=== PATIENT | female | born 1955 | race Caucasian/White ===

== ENCOUNTER 2018-05-24 03:17 | Emergency (ER) | payer MEDICARE, MEDICAID ==
[2018-05-24] MEDS ORDERED: Sodium Chloride 0.9% 10 ML Syringe FLUSH PRN (03:32)
[2018-05-24] MEDS ORDERED: Sodium Chloride 0.9% 1,000 ML IV ONE (03:34)
[2018-05-24] MEDS ORDERED: methylPREDNISolone Sodium Succinate 125 MG/2 ML SDV IVPUSH ONE (03:37)
[2018-05-24] MEDS ORDERED: Albuterol/Ipratropium 3.0-0.5 MG/3 ML Neb Soln NEB ONE ×2 (03:38→05:48)
--- NOTE | 2018-05-24 04:12 | EDM.PDOC ---
ED HPI GENERAL MEDICAL PROBLEM - General Chief Complaint: Respiratory Problem Stated Complaint: Respiratory distress, hypoxia Time Seen by Provider: 05/24/18 03:25 Source of Information: Reports: Patient, EMS Notes Reviewed, RN, RN Notes Reviewed History Limitations: Reports: No Limitations - History of Present Illness INITIAL COMMENTS - FREE TEXT/NARRATIVE: Patient is brought to the ED at [facility] via EMS for SOB and wheezing. Patient states she was seen earlier this week in clinic and was diagnosed with bronchitis. She was place on oral steroid and a ZPak. Patient states her SOB started yesterday morning and has progressively gotten worse. She denies any cough. No chest pain. She states it is really hard to catch her breath. She denies any N/V/D. No exposures. No focal neurological deficits. She complains of profuse sweating. She feels very chilled. Onset: Gradual frontal headache Pain Score (Numeric/FACES): 5 - Related Data Allergies Allergy/AdvReac Type Severity Reaction Status Date / Time Penicillins Allergy Stomach Verified 09/20/16 22:59 Upset Home Meds: Home Meds Simvastatin 10 mg PO BEDTIME 02/13/16 [History] Verapamil HCl [Verapamil Sr] 180 mg DAILY 02/13/16 [History] Acetaminophen [Tylenol Extra Strength] 500 - 1,000 mg PO Q4H PRN 09/19/16 [ History] Aspirin [Halfprin] 81 mg PO DAILY 09/19/16 [History] Cyanocobalamin (Vitamin B-12) [B-12] 1,000 mcg PO DAILY 09/19/16 [History] Furosemide [Lasix] 20 mg PO DAILY 09/19/16 [History] Levothyroxine 125 mcg PO ACBREAKFAST 09/19/16 [History] Cephalexin [IJD: Cephalexin] 500 mg PO QID capsule 09/22/16 [Rx] levETIRAcetam [Keppra] 500 mg PO BID #60 tablet 09/22/16 [Rx] Past Medical History Cardiovascular History: Reports: Hypertension Gastrointestinal History: Reports: GERD Other Musculoskeletal History: DJD Neurological History: Reports: Seizure Psychiatric History: Reports: Addiction, Anxiety, Depression Dermatologic History: Reports: Cellulitis - Past Surgical History Female Surgical History: Reports: Hysterectomy, Other (See Below) Musculoskeletal Surgical History: Reports: Other (See Below) Oncologic Surgical History: Reports: Biopsy of Breast Social & Family History - Family History Family Medical History: Noncontributory - Caffeine Use Caffeine Use: Reports: Soda, Tea ED ROS GENERAL - Review of Systems Review Of Systems: See Below Constitutional: Reports: Chills, Weakness, Fatigue. Denies: Fever HEENT: Reports: No Symptoms Respiratory: Reports: Shortness of Breath, Wheezing. Denies: Cough, Sputum Cardiovascular: Denies: Chest Pain, Palpitations GI/Abdominal: Denies: Abdominal Pain, Nausea, Vomiting Skin: Reports: Diaphoresis Neurological: Denies: Dizziness, Headache, Numbness, Paresthesia, Tingling Psychiatric: Reports: Anxiety ED EXAM, GENERAL - Physical Exam Exam: See Below Exam Limited By: No Limitations General Appearance: Alert, Moderate Distress Respiratory/Chest: No Respiratory Distress, Decreased Breath Sounds, Crackles, Wheezing Cardiovascular: Normal Peripheral Pulses, Tachycardia (regular rhythm) Peripheral Pulses: 2+: Radial (L), Radial (R) GI/Abdominal: Soft, Non-Tender, Abnormal Bowel Sounds (Hypoactive) Neurological: Alert, Oriented Skin Exam: Intact, Cool, Diaphoretic EKG INTERPRETATION EKG Date: 05/24/18 Time: 03:46 Rhythm: Other Rate (Beats/Min): 116 [place]: Normal P-Wave: Present QRS: Normal ST-T: Normal QT: Normal CA/PQ Interval: 0.13 Comparison: Change From Previous EKG EKG Interpretation Comments: 1. Sinus Tachycardia 2. Nonspecific t-wave abnormality Course - Vital Signs Last Recorded V/S: Last Vital Signs Temp 36.2 C 05/24/18 03:17 Pulse 130 H 05/24/18 03:17 Resp 21 H 05/24/18 04:33 BP 167/110 H 05/24/18 03:17 Pulse Ox 99 05/24/18 04:33 - Orders/Labs/Meds Orders: Active Orders 24 hr Category Date Time Status EKG 12 Lead [EKG Documentation Completion] [RC] STAT Care 05/24/18 03:32 Active RT Aerosol Therapy [RC] ASDIRECTED Care 05/24/18 03:38 Active Chest 1V Frontal [CR] Stat Exams 05/24/18 03:32 Taken Chest PE [Ang Chest] [CT] Stat Exams 05/24/18 04:36 Taken CULTURE BLOOD [BC] Stat Lab 05/24/18 04:15 Received CULTURE BLOOD [BC] Stat Lab 05/24/18 04:22 Received UA W/MICROSCOPIC [URIN] Stat Lab 05/24/18 03:35 Ordered Heparin Sodium/0.45% NaCl [Heparin 25,000 Units in 1/2 Med 05/24/18 06:00 Ordered NS 500 ML] 25,000 units in 500 ml IV TITRATE Levofloxacin/Dextrose 5%-Water [Levaquin in D5W 500 MG/ Med 05/24/18 05:46 Ordered 100 ML] 500 mg Premix Bag 1 bag IV ONETIME Sodium Chloride 0.9% [Saline Flush] Med 05/24/18 03:32 Active 10 ml FLUSH ASDIRECTED PRN Blood Culture x2 Reflex Set [OM.PC] Stat Oth 05/24/18 03:30 Ordered Peripheral IV Insertion Adult [OM.PC] Routine Oth 05/24/18 03:32 Ordered Medication Orders Levofloxacin/Dextrose 500 mg/ (Premix) 100 mls @ 100 mls/hr IV ONETIME ONE Stop: 05/24/18 06:45 Heparin Sodium/Sodium Chloride (Heparin 25,000 Units In 1/2 Ns 500 Ml) 25,000 units in 500 mls @ 2,068.38 mls/hr IV TITRATE CHAN; Protocol Sodium Chloride (Saline Flush) 10 ml FLUSH ASDIRECTED PRN PRN Reason: Keep Vein Open Labs: Laboratory Tests 05/24/18 05/24/18 05/24/18 Range/Units 03:30 03:30 03:30 WBC 24.4 H* (4.0-10.0) x10^3/uL RBC 5.32 (4.00-5.50) x10^6/uL Hgb 16.7 H D (12.0-16.0) g/dL Hct 49.8 H (33.0-47.0) % MCV 93.6 H D (78.0-93.0) fL MCH 31.4 (26.0-32.0) pg MCHC 33.5 (32.0-36.0) g/dL RDW Coeff of Rupert 15.5 H (10.0-15.0) % Plt Count 341 D (130-400) x10^3/uL Add Manual Diff Yes Neutrophils % (Manual) 80 (50-80) % Lymphocytes % (Manual) 8 L (25-50) % Monocytes % (Manual) 2 (2-11) % Eosinophils % (Manual) 8 H (0-4) % Basophils % (Manual) 2 H (0-1) % Platelet Estimate Adequate D-Dimer, Quantitative (<=0.58) mg/LFEU POC ABG pH (7.35-7.45) POC ABG pCO2 (35-45) mmHG POC ABG pO2 (80-105) mmHG POC ABG HCO3 (22-26) mmol/L POC ABG Total CO2 (23-27) mmol/L POC ABG O2 Sat (95-98) % POC ABG Base Excess (-2-3) mmol/L POC FiO2 Sodium 138 (136-145) mmol/L Potassium 3.1 L (3.5-5.1) mmol/L Chloride 97 L (98-107) mmol/L Carbon Dioxide 30 (21-32) mmol/L Anion Gap 14.1 (10-20) mmol/L BUN 8 (7-18) mg/dL Creatinine 0.7 (0.55-1.02) mg/dL Est Cr Clr Drug Dosing 70.70 mL/min Estimated GFR (MDRD) > 60 Glucose 199 H (74-106) mg/dL Lactic Acid 2.5 H* (0.4-2.0) mmol/L Calcium 8.7 (8.5-10.1) mg/dL Corrected Calcium 8.86 (8.5-10.1) mg/dL Total Bilirubin 1.0 (0.2-1.0) mg/dL AST 13 L (15-37) U/L ALT 18 (14-59) U/L Alkaline Phosphatase 184 H (46-116) U/L Creatine Kinase 85 (26-192) U/L Troponin I 1.250 H* (<=0.056) ng/mL C-Reactive Protein 3.0 H (<=0.9) mg/dL NT-Pro-B Natriuret Pep (<=125) pg/mL Total Protein 8.2 (6.4-8.2) g/dL Albumin 3.8 (3.4-5.0) g/dL Globulin 4.4 Albumin/Globulin Ratio 0.86 Urine Color (YELLOW) Urine Appearance (CLEAR) Urine pH (5.0-8.0) Ur Specific [place] Urine Protein (NEGATIVE) mg/dL Urine Glucose (UA) (NEGATIVE) mg/dL Urine Ketones (NEGATIVE) mg/dL Urine Occult Blood (NEGATIVE) Urine Nitrite (NEGATIVE) Urine Bilirubin (NEGATIVE) Urine Urobilinogen (0.2) EU/dL Ur Leukocyte Esterase (NEGATIVE) Urine RBC (NOT SEEN) /HPF Urine WBC (NOT SEEN) /HPF Ur Squamous Epith Cells (NEGATIVE) /HPF Amorphous Sediment Urine Bacteria (NEGATIVE) /HPF Hyaline Casts (NEGATIVE) /HPF Urine Mucus (NEGATIVE) /LPF 05/24/18 05/24/18 05/24/18 Range/Units 03:30 03:30 03:35 WBC (4.0-10.0) x10^3/uL RBC (4.00-5.50) x10^6/uL Hgb (12.0-16.0) g/dL Hct (33.0-47.0) % MCV (78.0-93.0) fL MCH (26.0-32.0) pg MCHC (32.0-36.0) g/dL RDW Coeff of Rupert (10.0-15.0) % Plt Count (130-400) x10^3/uL Add Manual Diff Neutrophils % (Manual) (50-80) % Lymphocytes % (Manual) (25-50) % Monocytes % (Manual) (2-11) % Eosinophils % (Manual) (0-4) % Basophils % (Manual) (0-1) % Platelet Estimate D-Dimer, Quantitative 0.52 (<=0.58) mg/LFEU POC ABG pH (7.35-7.45) POC ABG pCO2 (35-45) mmHG POC ABG pO2 (80-105) mmHG POC ABG HCO3 (22-26) mmol/L POC ABG Total CO2 (23-27) mmol/L POC ABG O2 Sat (95-98) % POC ABG Base Excess (-2-3) mmol/L POC FiO2 Sodium (136-145) mmol/L Potassium (3.5-5.1) mmol/L Chloride (98-107) mmol/L Carbon Dioxide (21-32) mmol/L Anion Gap (10-20) mmol/L BUN (7-18) mg/dL Creatinine (0.55-1.02) mg/dL Est Cr Clr Drug Dosing mL/min Estimated GFR (MDRD) Glucose (74-106) mg/dL Lactic Acid (0.4-2.0) mmol/L Calcium (8.5-10.1) mg/dL Corrected Calcium (8.5-10.1) mg/dL Total Bilirubin (0.2-1.0) mg/dL AST (15-37) U/L ALT (14-59) U/L Alkaline Phosphatase (46-116) U/L Creatine Kinase (26-192) U/L Troponin I (<=0.056) ng/mL C-Reactive Protein (<=0.9) mg/dL NT-Pro-B Natriuret Pep 298 H (<=125) pg/mL Total Protein (6.4-8.2) g/dL Albumin (3.4-5.0) g/dL Globulin Albumin/Globulin Ratio Urine Color Isaura H (YELLOW) Urine Appearance Cloudy H (CLEAR) Urine pH 7.0 (5.0-8.0) Ur Specific [place] 1.025 Urine Protein >=300 H (NEGATIVE) mg/dL Urine Glucose (UA) 100 H (NEGATIVE) mg/dL Urine Ketones Trace H (NEGATIVE) mg/dL Urine Occult Blood Trace-lysed H (NEGATIVE) Urine Nitrite Negative (NEGATIVE) Urine Bilirubin Negative (NEGATIVE) Urine Urobilinogen 0.2 (0.2) EU/dL Ur Leukocyte Esterase Negative (NEGATIVE) Urine RBC 0-5 (NOT SEEN) /HPF Urine WBC 0-5 (NOT SEEN) /HPF Ur Squamous Epith Cells Moderate H (NEGATIVE) /HPF Amorphous Sediment Few Urine Bacteria Moderate H (NEGATIVE) /HPF Hyaline Casts Few H (NEGATIVE) /HPF Urine Mucus Moderate H (NEGATIVE) /LPF 05/24/18 Range/Units 04:07 WBC (4.0-10.0) x10^3/uL RBC (4.00-5.50) x10^6/uL Hgb (12.0-16.0) g/dL Hct (33.0-47.0) % MCV (78.0-93.0) fL MCH (26.0-32.0) pg MCHC (32.0-36.0) g/dL RDW Coeff of Rupert (10.0-15.0) % Plt Count (130-400) x10^3/uL Add Manual Diff Neutrophils % (Manual) (50-80) % Lymphocytes % (Manual) (25-50) % Monocytes % (Manual) (2-11) % Eosinophils % (Manual) (0-4) % Basophils % (Manual) (0-1) % Platelet Estimate D-Dimer, Quantitative (<=0.58) mg/LFEU POC ABG pH 7.312 L (7.35-7.45) POC ABG pCO2 59 H (35-45) mmHG POC ABG pO2 110 H (80-105) mmHG POC ABG HCO3 30 H (22-26) mmol/L POC ABG Total CO2 32 H (23-27) mmol/L POC ABG O2 Sat 98 (95-98) % POC ABG Base Excess 4 H (-2-3) mmol/L POC FiO2 0.48 Sodium (136-145) mmol/L Potassium (3.5-5.1) mmol/L Chloride (98-107) mmol/L Carbon Dioxide (21-32) mmol/L Anion Gap (10-20) mmol/L BUN (7-18) mg/dL Creatinine (0.55-1.02) mg/dL Est Cr Clr Drug Dosing mL/min Estimated GFR (MDRD) Glucose (74-106) mg/dL Lactic Acid (0.4-2.0) mmol/L Calcium (8.5-10.1) mg/dL Corrected Calcium (8.5-10.1) mg/dL Total Bilirubin (0.2-1.0) mg/dL AST (15-37) U/L ALT (14-59) U/L Alkaline Phosphatase (46-116) U/L Creatine Kinase (26-192) U/L Troponin I (<=0.056) ng/mL C-Reactive Protein (<=0.9) mg/dL NT-Pro-B Natriuret Pep (<=125) pg/mL Total Protein (6.4-8.2) g/dL Albumin (3.4-5.0) g/dL Globulin Albumin/Globulin Ratio Urine Color (YELLOW) Urine Appearance (CLEAR) Urine pH (5.0-8.0) Ur Specific [place] Urine Protein (NEGATIVE) mg/dL Urine Glucose (UA) (NEGATIVE) mg/dL Urine Ketones (NEGATIVE) mg/dL Urine Occult Blood (NEGATIVE) Urine Nitrite (NEGATIVE) Urine Bilirubin (NEGATIVE) Urine Urobilinogen (0.2) EU/dL Ur Leukocyte Esterase (NEGATIVE) Urine RBC (NOT SEEN) /HPF Urine WBC (NOT SEEN) /HPF Ur Squamous Epith Cells (NEGATIVE) /HPF Amorphous Sediment Urine Bacteria (NEGATIVE) /HPF Hyaline Casts (NEGATIVE) /HPF Urine Mucus (NEGATIVE) /LPF Meds: Medications Generic Name Dose Route Start Last Admin Trade Name Pa PRN Reason Stop Dose Admin Levofloxacin/Dextrose 500 mg/ 100 mls @ 100 mls/hr 05/24/18 05:46 Premix IV 05/24/18 06:45 ONETIME ONE Heparin Sodium/Sodium Chloride 25,000 units in 500 mls @ 2,068.38 mls/hr 05/24 06:00 Heparin 25,000 Units In 1/2 Ns 500 Ml IV TITRATE CHAN Protocol 1,000 UNITS/KG/HR Sodium Chloride 10 ml 05/24/18 03:32 Saline Flush FLUSH ASDIRECTED PRN Keep Vein Open Discontinued Medications Generic Name Dose Route Start Last Admin Trade Name Pa PRN Reason Stop Dose Admin Albuterol/Ipratropium 3 ml 05/24/18 03:38 05/24/18 03:40 Duoneb 3.0-0.5 Mg/3 Ml NEB 05/24/18 03:39 3 ml ONETIME ONE Administration Aspirin 324 mg 05/24/18 05:45 Aspirin PO 05/24/18 05:46 ONETIME ONE Heparin Sodium (Porcine) 4,000 units 05/24/18 05:46 Heparin Sodium IVPUSH 05/24/18 05:47 ONETIME ONE Sodium Chloride 1,000 mls @ 999 mls/hr 05/24/18 03:34 05/24/18 03:40 Normal Saline IV 05/24/18 04:34 999 mls/hr ONETIME ONE Administration Vancomycin HCl 1 gm/ Sodium 250 mls @ 250 mls/hr 05/24/18 04:45 05/24/18 05: 07 Chloride IV 05/24/18 05:44 250 mls/hr STAT ONE Administration Iopamidol 100 ml 05/24/18 04:25 05/24/18 04:58 Isovue-300 (61%) IVPUSH 05/24/18 04:26 100 ml ONETIME ONE Administration Lorazepam 1 mg 05/24/18 04:37 05/24/18 05:03 Ativan IV 05/24/18 04:38 1 mg ONETIME STA Administration Methylprednisolone Sodium Succinate 125 mg 05/24/18 03:37 05/24/18 03:45 Solu-Medrol IVPUSH 05/24/18 03:38 125 mg ONETIME ONE Administration Ondansetron HCl 4 mg 05/24/18 04:54 05/24/18 05:21 Zofran IVPUSH 05/24/18 04:55 4 mg ONETIME ONE Administration Vancomycin HCl 1 dose 05/24/18 04:14 Pharmacy To Dose - Vancomycin .XX 05/24/18 04:15 ONETIME ONE - Radiology Interpretation Free Text/Narrative:: CXR: Right hilar fullness; If this persists on PA and lateral views, then I would suggest a CT scan of the chest See scanned report in EMR CTA Chest: Bronchitis or reactive airway disease. No evidence of pulmonary emboli See scanned report in EMR CT Results Date: 05/24/18 CT Results Time: 05:18 Departure - Departure Time of Disposition: 05:49 Disposition: DC/Tfer to Acute Hospital 02 Condition: Fair Clinical Impression: NSTEMI (non-ST elevated myocardial infarction), Reactive airway disease that is not asthma Sepsis Qualifiers: Sepsis type: sepsis due to unspecified organism Qualified Code(s): A41.9 - Sepsis, unspecified organism - Discharge Information Forms: Interfacility Transfer [facility] ED Communication - ED Communication Date/Time Date: 05/24/18 Time Called: 05:14 - Discussed Case With (1) Discussed Case With (1): Admitting Provider (Dr. Cavazos, [facility]) - Conversation Summary Admitting Provider Agreed to Patient's Admission: Yes Patient Aware of Amendments fo Care Plan: Yes - Problem List Review Problem List Initiated/Reviewed/Updated: Yes - My Orders Last 24 Hours: My Active Orders 05/24/18 03:30 Blood Culture x2 Reflex Set [OM.PC] Stat 05/24/18 03:32 EKG 12 Lead [EKG Documentation Completion] [RC] STAT Chest 1V Frontal [CR] Stat Sodium Chloride 0.9% [Saline Flush] 10 ml FLUSH ASDIRECTED PRN Peripheral IV Insertion Adult [OM.PC] Routine 05/24/18 03:35 UA W/MICROSCOPIC [URIN] Stat 05/24/18 03:38 RT Aerosol Therapy [RC] ASDIRECTED 05/24/18 04:15 CULTURE BLOOD [BC] Stat 05/24/18 04:22 CULTURE BLOOD [BC] Stat 05/24/18 04:36 Chest PE [Ang Chest] [CT] Stat 05/24/18 05:46 Levofloxacin/Dextrose 5%-Water [Levaquin in D5W 500 MG/100 ML] 500 mg Premix Bag 1 bag IV ONETIME 05/24/18 06:00 Heparin Sodium/0.45% NaCl [Heparin 25,000 Units in 1/2 NS 500 ML] 25,000 units in 500 ml IV TITRATE - Assessment/Plan Last 24 Hours: My Active Orders 05/24/18 03:30 Blood Culture x2 Reflex Set [OM.PC] Stat 05/24/18 03:32 EKG 12 Lead [EKG Documentation Completion] [RC] STAT Chest 1V Frontal [CR] Stat Sodium Chloride 0.9% [Saline Flush] 10 ml FLUSH ASDIRECTED PRN Peripheral IV Insertion Adult [OM.PC] Routine 05/24/18 03:35 UA W/MICROSCOPIC [URIN] Stat 05/24/18 03:38 RT Aerosol Therapy [RC] ASDIRECTED 05/24/18 04:15 CULTURE BLOOD [BC] Stat 05/24/18 04:22 CULTURE BLOOD [BC] Stat 05/24/18 04:36 Chest PE [Ang Chest] [CT] Stat 05/24/18 05:46 Levofloxacin/Dextrose 5%-Water [Levaquin in D5W 500 MG/100 ML] 500 mg Premix Bag 1 bag IV ONETIME 05/24/18 06:00 Heparin Sodium/0.45% NaCl [Heparin 25,000 Units in 1/2 NS 500 ML] 25,000 units in 500 ml IV TITRATE Assessment:: NSTEMI Reactive Airway Disease Sepsis Plan: Case discussed with Dr. Cavazos and Dr. Floyd. Recommend Levaquin in additional to Vanco. Start Heparin with bolus for NSTEMI. Will given on additional DuoNeb prior to transfer. Patient accepted by Dr. Cavazos. Patient will be sent via ALS ground.
[2018-05-24] MEDS ORDERED: Iopamidol 612 MG/ML 100 ML Bottle IVPUSH ONE (04:25)
[2018-05-24] MEDS ORDERED: LORazepam 2 MG/ML SDV IV STA (04:37)
[2018-05-24 04:44] LABS: CHLORIDE,CL 97 mmol/L (98-107); SODIUM,NA 138 mmol/L (136-145)
[2018-05-24] MEDS ORDERED: Ondansetron 4 MG/2 ML SDV IVPUSH ONE (04:54)
[2018-05-24] MEDS ORDERED: Aspirin 81 MG Tab.Chew PO ONE (05:45)
[2018-05-24] MEDS ORDERED: Levofloxacin/Dextrose 5%-Water 500 MG in Premix Bag 1 BAG IV ONE (05:46)
[2018-05-24] MEDS ORDERED: Heparin Sodium 5,000 Units/ML Vial IVPUSH ONE (05:46)
[2018-05-24] MEDS ORDERED: Heparin Sodium/0.45% NaCl 25,000 UNITS/500 ML BAG IV SCH ×2 (06:00→06:15)
[2018-05-24] MEDS ORDERED: Heparin Sodium/0.45% NaCl 500 ML ONE (06:05)
[2018-05-24 06:37] VITALS: BP 150/98
== END 2018-05-24 06:55 | disposition short-term general hospital (02) ==
LOC: VM.ED 03:17
DX: A41.9 Sepsis, unspecified organism (principal); I21.4 Non-ST elevation (NSTEMI) myocardial infarction; J98.8 Other specified respiratory disorders; I10 Essential (primary) hypertension; Z88.0 Allergy status to penicillin; Z79.899 Other long term (current) drug therapy; Z79.82 Long term (current) use of aspirin
CPT/HCPCS: 36415; 36600; 71045; 71275; 80053; 81001; 82550; 82803; 83605; 83880; 84484; 85025; 85379; 86140; 87040; 93005; 94640; 96361; 96365; 96367; 96375; 96376; 99291; 99292; A9270; J1644; J1956; J2060; J2405; J2930; J3370; J7030; J7050; Q9967

== ENCOUNTER 2018-06-20 17:19 | Emergency (ER) | payer MEDICARE, MEDICAID ==
[2018-06-20] MEDS ORDERED: Sodium Chloride 0.9% 10 ML Syringe FLUSH PRN (17:25)
[2018-06-20] MEDS: Nitroglycerin 0.4 MG Tab.SL SL ONE ×2 (17:26→18:11)
--- NOTE | 2018-06-20 18:19 | EDM.PDOC ---
ED HPI GENERAL MEDICAL PROBLEM - General Chief Complaint: Respiratory Problem Time Seen by Provider: 06/20/18 17:19 Source of Information: Reports: Patient, EMS History Limitations: Reports: No Limitations - History of Present Illness INITIAL COMMENTS - FREE TEXT/NARRATIVE: Pt. presents to ER with acute respiratory distress. Pt. states that this started that this started 15 min prior to calling ER. Pt. states that she did not have any chest pain prior to this acute dyspnea. She was recently hospitalized with systolic heart failure and respiratory failure at [place] and was discharge on 06/03/18. Pt. had a hypertensive crisis at that time as well. Her breathing improved with diuresis and blood pressure management. Pt. states that she has been experiencing peripheral edema in her extremities since she was discharged. She states that she has otherwise been feeling well, and denies any fever, chills, weakness, or chest pain. Location: Reports: Generalized Treatments CUSTOMS DIRECTOR: Reports: IV/IO, Oxygen Other Treatments CUSTOMS DIRECTOR: duoneb - Related Data Allergies Allergy/AdvReac Type Severity Reaction Status Date / Time Penicillins Allergy Stomach Verified 06/20/18 17:33 Upset Home Meds: Home Meds Simvastatin 10 mg PO BEDTIME 02/13/16 [History] Verapamil HCl [Verapamil Sr] 180 mg DAILY 02/13/16 [History] Acetaminophen [Tylenol Extra Strength] 500 - 1,000 mg PO Q4H PRN 09/19/16 [ History] Aspirin [Halfprin] 81 mg PO DAILY 09/19/16 [History] Cyanocobalamin (Vitamin B-12) [B-12] 1,000 mcg PO DAILY 09/19/16 [History] Furosemide [Lasix] 20 mg PO DAILY 09/19/16 [History] Levothyroxine 125 mcg PO ACBREAKFAST 09/19/16 [History] Cephalexin [IJD: Cephalexin] 500 mg PO QID capsule 09/22/16 [Rx] levETIRAcetam [Keppra] 500 mg PO BID #60 tablet 09/22/16 [Rx] Past Medical History Cardiovascular History: Reports: Hypertension Gastrointestinal History: Reports: GERD Other Musculoskeletal History: DJD Neurological History: Reports: Seizure Psychiatric History: Reports: Addiction, Anxiety, Depression Dermatologic History: Reports: Cellulitis - Past Surgical History HEENT Surgical History: Reports: Adenoidectomy, Tonsillectomy Female Surgical History: Reports: Hysterectomy, Other (See Below) Musculoskeletal Surgical History: Reports: Other (See Below) Oncologic Surgical History: Reports: Biopsy of Breast Social & Family History - Family History Family Medical History: Noncontributory - Tobacco Use Smoking Status *Q: Unknown Ever Smoked - Caffeine Use Caffeine Use: Reports: Soda, Tea ED ROS GENERAL - Review of Systems Review Of Systems: See Below Constitutional: Reports: No Symptoms HEENT: Reports: No Symptoms Respiratory: Reports: Shortness of Breath Cardiovascular: Reports: Dyspnea on Exertion, Edema, Orthopnea, PND Endocrine: Reports: No Symptoms GI/Abdominal: Reports: No Symptoms : Reports: No Symptoms Musculoskeletal: Reports: No Symptoms Skin: Reports: No Symptoms Neurological: Reports: No Symptoms Psychiatric: Reports: No Symptoms Hematologic/Lymphatic: Reports: No Symptoms Immunologic: Reports: No Symptoms ED EXAM, GENERAL - Physical Exam Exam: See Below Exam Limited By: No Limitations General Appearance: Alert, Anxious, Severe Distress, Obese Respiratory/Chest: Crackles, Rales, Wheezing Cardiovascular: Normal Peripheral Pulses, No JVD, No Murmur, Tachycardia Peripheral Pulses: 4+: Radial (R) GI/Abdominal: Normal Bowel Sounds, Soft, Non-Tender, No Organomegaly, No Distention (Female) Exam: Deferred Rectal (Female) Exam: Deferred Back Exam: Normal Inspection, Full Range of Motion, NT Extremities: Normal Inspection, Normal Range of Motion, Non-Tender, Pedal Edema Neurological: Alert, Oriented, Normal Gait, Normal Reflexes, No Motor/Sensory Deficits, Confused Psychiatric: Normal Affect, Anxious Skin Exam: Warm, Dry, Intact, Normal Color, No Rash EKG INTERPRETATION Rhythm: NSR [place]: Normal P-Wave: Present QRS: Normal ST-T: Normal QT: Normal Course - Vital Signs Last Recorded V/S: Last Vital Signs Temp 36.6 C 06/20/18 17:19 Pulse 136 H 06/20/18 17:19 Resp 28 H 06/20/18 17:19 BP 169/91 H 06/20/18 18:11 Pulse Ox 97 06/20/18 17:19 - Orders/Labs/Meds Orders: Active Orders 24 hr Category Date Time Status BIPAP Adult [RT BiPAP/CPAP] [RC] ASDIRECTED Care 06/20/18 18:22 Ordered EKG Documentation Completion [RC] STAT Care 06/20/18 17:25 Active Oxygen Therapy [RC] PRN Care 06/20/18 17:25 Active Chest 1V Frontal [CR] Stat Exams 06/20/18 17:25 Taken CULTURE BLOOD [BC] Stat Lab 06/20/18 17:27 Ordered CULTURE BLOOD [BC] Stat Lab 06/20/18 17:27 Ordered UA W/MICROSCOPIC [URIN] Stat Lab 06/20/18 18:19 Ordered Sodium Chloride 0.9% [Saline Flush] Med 06/20/18 17:25 Active 10 ml FLUSH ASDIRECTED PRN Blood Culture x2 Reflex Set [OM.PC] Stat Oth 06/20/18 17:27 Ordered Peripheral IV Insertion Adult [OM.PC] Routine Oth 06/20/18 17:26 Ordered Medication Orders Sodium Chloride (Saline Flush) 10 ml FLUSH ASDIRECTED PRN PRN Reason: Keep Vein Open Labs: Laboratory Tests 06/20/18 06/20/18 06/20/18 Range/Units 17:35 17:35 17:35 WBC 10.7 H (4.0-10.0) x10^3/uL RBC 4.89 (4.00-5.50) x10^6/uL Hgb 15.3 (12.0-16.0) g/dL Hct 45.9 (33.0-47.0) % MCV 93.9 H (78.0-93.0) fL MCH 31.3 (26.0-32.0) pg MCHC 33.3 (32.0-36.0) g/dL RDW Coeff of Rupert 15.5 H (10.0-15.0) % Plt Count 250 D (130-400) x10^3/uL Neut % (Auto) 73.1 (50.0-80.0) % Lymph % (Auto) 12.3 L (25.0-50.0) % [place] % (Auto) 3.5 (2.0-11.0) % Eos % (Auto) 10.6 H (0.0-4.0) % Baso % (Auto) 0.5 (0.2-1.2) % PT 9.7 (9.6-11.4) SEC INR 0.9 L (2.0-3.5) D-Dimer, Quantitative 0.81 H (<=0.58) mg/LFEU POC ABG pH (7.35-7.45) POC ABG pCO2 (35-45) mmHG POC ABG pO2 (80-105) mmHG POC ABG HCO3 (22-26) mmol/L POC ABG Total CO2 (23-27) mmol/L POC ABG O2 Sat (95-98) % POC ABG Base Excess (-2-3) mmol/L POC FiO2 Sodium 143 (136-145) mmol/L Potassium 3.8 (3.5-5.1) mmol/L Chloride 103 (98-107) mmol/L Carbon Dioxide 30 (21-32) mmol/L Anion Gap 13.8 (10-20) mmol/L BUN 11 (7-18) mg/dL Creatinine 0.6 (0.55-1.02) mg/dL Est Cr Clr Drug Dosing TNP Estimated GFR (MDRD) > 60 Glucose 116 H (74-106) mg/dL Lactic Acid (0.4-2.0) mmol/L Calcium 9.5 (8.5-10.1) mg/dL Corrected Calcium 9.98 (8.5-10.1) mg/dL Phosphorus 5.0 H (2.6-4.7) mg/dL Magnesium 2.0 (1.8-2.4) mg/dL Total Bilirubin < 0.1 L (0.2-1.0) mg/dL AST 13 L (15-37) U/L ALT 18 (14-59) U/L Alkaline Phosphatase 147 H (46-116) U/L Troponin I < 0.017 (<=0.056) ng/mL C-Reactive Protein 2.5 H (<=0.9) mg/dL NT-Pro-B Natriuret Pep 157 H (<=125) pg/mL Total Protein 7.8 (6.4-8.2) g/dL Albumin 3.4 (3.4-5.0) g/dL Globulin 4.4 Albumin/Globulin Ratio 0.77 Urine Color (YELLOW) Urine Appearance (CLEAR) Urine pH (5.0-8.0) Ur Specific [place] Urine Protein (NEGATIVE) mg/dL Urine Glucose (UA) (NEGATIVE) mg/dL Urine Ketones (NEGATIVE) mg/dL Urine Occult Blood (NEGATIVE) Urine Nitrite (NEGATIVE) Urine Bilirubin (NEGATIVE) Urine Urobilinogen (0.2) EU/dL Ur Leukocyte Esterase (NEGATIVE) Urine RBC (NOT SEEN) /HPF Urine WBC (NOT SEEN) /HPF Ur Squamous Epith Cells (NEGATIVE) /HPF Urine Bacteria (NEGATIVE) /HPF Urine Mucus (NEGATIVE) /LPF 06/20/18 06/20/18 06/20/18 Range/Units 17:35 18:09 18:19 WBC (4.0-10.0) x10^3/uL RBC (4.00-5.50) x10^6/uL Hgb (12.0-16.0) g/dL Hct (33.0-47.0) % MCV (78.0-93.0) fL MCH (26.0-32.0) pg MCHC (32.0-36.0) g/dL RDW Coeff of Rupert (10.0-15.0) % Plt Count (130-400) x10^3/uL Neut % (Auto) (50.0-80.0) % Lymph % (Auto) (25.0-50.0) % [place] % (Auto) (2.0-11.0) % Eos % (Auto) (0.0-4.0) % Baso % (Auto) (0.2-1.2) % PT (9.6-11.4) SEC INR (2.0-3.5) D-Dimer, Quantitative (<=0.58) mg/LFEU POC ABG pH 7.421 (7.35-7.45) POC ABG pCO2 53 H (35-45) mmHG POC ABG pO2 212 H (80-105) mmHG POC ABG HCO3 34 H (22-26) mmol/L POC ABG Total CO2 36 H (23-27) mmol/L POC ABG O2 Sat 100 H (95-98) % POC ABG Base Excess 10 H (-2-3) mmol/L POC FiO2 0.80 Sodium (136-145) mmol/L Potassium (3.5-5.1) mmol/L Chloride (98-107) mmol/L Carbon Dioxide (21-32) mmol/L Anion Gap (10-20) mmol/L BUN (7-18) mg/dL Creatinine (0.55-1.02) mg/dL Est Cr Clr Drug Dosing Estimated GFR (MDRD) Glucose (74-106) mg/dL Lactic Acid 1.4 (0.4-2.0) mmol/L Calcium (8.5-10.1) mg/dL Corrected Calcium (8.5-10.1) mg/dL Phosphorus (2.6-4.7) mg/dL Magnesium (1.8-2.4) mg/dL Total Bilirubin (0.2-1.0) mg/dL AST (15-37) U/L ALT (14-59) U/L Alkaline Phosphatase (46-116) U/L Troponin I (<=0.056) ng/mL C-Reactive Protein (<=0.9) mg/dL NT-Pro-B Natriuret Pep (<=125) pg/mL Total Protein (6.4-8.2) g/dL Albumin (3.4-5.0) g/dL Globulin Albumin/Globulin Ratio Urine Color Yellow (YELLOW) Urine Appearance Slightly cloudy H (CLEAR) Urine pH 6.0 (5.0-8.0) Ur Specific [place] 1.010 Urine Protein Trace H (NEGATIVE) mg/dL Urine Glucose (UA) Negative (NEGATIVE) mg/dL Urine Ketones Negative (NEGATIVE) mg/dL Urine Occult Blood Negative (NEGATIVE) Urine Nitrite Negative (NEGATIVE) Urine Bilirubin Negative (NEGATIVE) Urine Urobilinogen 0.2 (0.2) EU/dL Ur Leukocyte Esterase Negative (NEGATIVE) Urine RBC 0-5 (NOT SEEN) /HPF Urine WBC 0-5 (NOT SEEN) /HPF Ur Squamous Epith Cells Few H (NEGATIVE) /HPF Urine Bacteria Few H (NEGATIVE) /HPF Urine Mucus Rare H (NEGATIVE) /LPF Meds: Medications Generic Name Dose Route Start Last Admin Trade Name Freq PRN Reason Stop Dose Admin Sodium Chloride 10 ml 06/20/18 17:25 Saline Flush FLUSH ASDIRECTED PRN Keep Vein Open Discontinued Medications Generic Name Dose Route Start Last Admin Trade Name Freq PRN Reason Stop Dose Admin Furosemide 20 mg 06/20/18 18:37 Lasix IV 06/20/18 18:38 ONETIME ONE Nitroglycerin 0.4 mg 06/20/18 17:26 06/20/18 17:26 Nitrostat SL 07/20/18 17:27 0.4 mg ONETIME ONE Administration Nitroglycerin 0.4 mg 06/20/18 18:10 06/20/18 18:11 Nitrostat SL 06/20/18 18:11 0.4 mg ONETIME ONE Administration Departure - Departure Time of Disposition: 18:51 Disposition: DC/Tfer to [facility] 02 Clinical Impression: Respiratory failure, Hypertensive CHF - Discharge Information Forms: ED Department Discharge, Interfacility Transfer EMTALA - Problem List Review Problem List Initiated/Reviewed/Updated: Yes - My Orders Last 24 Hours: My Active Orders 06/20/18 17:25 EKG Documentation Completion [RC] STAT Oxygen Therapy [RC] PRN Chest 1V Frontal [CR] Stat Sodium Chloride 0.9% [Saline Flush] 10 ml FLUSH ASDIRECTED PRN 06/20/18 17:26 Peripheral IV Insertion Adult [OM.PC] Routine 06/20/18 17:27 CULTURE BLOOD [BC] Stat CULTURE BLOOD [BC] Stat Blood Culture x2 Reflex Set [OM.PC] Stat 06/20/18 18:19 UA W/MICROSCOPIC [URIN] Stat 06/20/18 18:22 BIPAP Adult [RT BiPAP/CPAP] [RC] ASDIRECTED - Assessment/Plan Last 24 Hours: My Active Orders 06/20/18 17:25 EKG Documentation Completion [RC] STAT Oxygen Therapy [RC] PRN Chest 1V Frontal [CR] Stat Sodium Chloride 0.9% [Saline Flush] 10 ml FLUSH ASDIRECTED PRN 06/20/18 17:26 Peripheral IV Insertion Adult [OM.PC] Routine 06/20/18 17:27 CULTURE BLOOD [BC] Stat CULTURE BLOOD [BC] Stat Blood Culture x2 Reflex Set [OM.PC] Stat 06/20/18 18:19 UA W/MICROSCOPIC [URIN] Stat 06/20/18 18:22 BIPAP Adult [RT BiPAP/CPAP] [RC] ASDIRECTED Plan: Pt. had received IV lasix 40mg prehospitally and was given a duoneb. She is stating at 96% On O2 per mask. She was given a total of 2 doses of SL nitro and was started in Bipap. Pt. was anxious but tolerated it well. Resp. rate decreased at was 21 at transfer. Bipap setting was 10/5 with 50% fiO2. She was given 20mg of lasix IV for a total of 60mg. I spoke with Dr. Doherty who accepted the pt. in transfer. Pt. will be transported via [facility] ground ambulance. She is a code level 1.
[2018-06-20 18:29] LABS: CHLORIDE,CL 103 mmol/L (98-107); SODIUM,NA 143 mmol/L (136-145)
[2018-06-20 18:32] LABS: ANION GAP 13.8 mmol/L (10-20)
[2018-06-20 18:53] VITALS: BP 147/93
[2018-06-20] MEDS: Furosemide 20 MG/2 ML VIAL IV ONE (19:01)
== END 2018-06-20 19:12 | disposition short-term general hospital (02) ==
LOC: VM.ED 17:19
DX: J96.90 Respiratory failure, unspecified, unspecified whether with hypoxia or hypercapnia (principal); I11.0 Hypertensive heart disease with heart failure; I50.9 Heart failure, unspecified; K21.9 Gastro-esophageal reflux disease without esophagitis; F41.9 Anxiety disorder, unspecified; F32.9 Major depressive disorder, single episode, unspecified; Z88.0 Allergy status to penicillin; Z79.82 Long term (current) use of aspirin; Z79.899 Other long term (current) drug therapy
CPT/HCPCS: 36415; 36600; 71045; 80053; 81001; 82803; 83605; 83735; 83880; 84100; 84484; 85025; 85379; 85610; 86140; 87040; 93005; 94660; 94760; 96374; 99285; A9270-GY; J1940

== ENCOUNTER 2019-01-17 13:32 | Emergency (ER) | payer MEDICARE, MEDICAID ==
[2019-01-17] MEDS ORDERED: Sodium Chloride 0.9% 10 ML Syringe FLUSH PRN (14:00)
[2019-01-17] MEDS ORDERED: Sodium Chloride 0.9% 1,000 ML IV ONE (14:04)
--- NOTE | 2019-01-17 14:08 | EDM.PDOC ---
ED HPI GENERAL MEDICAL PROBLEM - General Chief Complaint: General Stated Complaint: Welfare check Time Seen by Provider: 01/17/19 13:49 Source of Information: Reports: Patient, EMS Notes Reviewed, Police, RN, RN Notes Reviewed History Limitations: Reports: Uncooperative - History of Present Illness INITIAL COMMENTS - FREE TEXT/NARRATIVE: Patient is brought to the emergency room at [facility] via EMS. The EMS was called to the patient's house secondary to a welfare check. According to EMS the patient had been sitting in a chair full of feces for about one month. The EMS state that the patient had multiple medication pill bottles tipped over and on the floor. The patient's daughter had actually called the police yesterday to do a welfare check. Upon arrival the patient was somewhat combative and appeared to be intoxicated. The decision was made to bring the patient is emergency room due to health concerns per EMS. Upon arrival, the patient is not combative but very demanding to go home. She is reluctant to answer questions or be assessed. Patient appears to be very distrusting of the ER staff. She does smell of ETOH. Patient states "I'm fine, I want to go home." She denies any chronic medical problems. - Related Data Allergies Allergy/AdvReac Type Severity Reaction Status Date / Time Penicillins Allergy Stomach Verified 01/17/19 14:27 Upset Home Meds: Home Meds Simvastatin 10 mg PO BEDTIME 02/13/16 [History] Verapamil HCl [Verapamil Sr] 180 mg DAILY 02/13/16 [History] Acetaminophen [Tylenol Extra Strength] 500 - 1,000 mg PO Q4H PRN 09/19/16 [ History] Aspirin [Halfprin] 81 mg PO DAILY 09/19/16 [History] Cyanocobalamin (Vitamin B-12) [B-12] 1,000 mcg PO DAILY 09/19/16 [History] Furosemide [Lasix] 20 mg PO DAILY 09/19/16 [History] Levothyroxine 125 mcg PO ACBREAKFAST 09/19/16 [History] Cephalexin [IJD: Cephalexin] 500 mg PO QID capsule 09/22/16 [Rx] levETIRAcetam [Keppra] 500 mg PO BID #60 tablet 09/22/16 [Rx] Past Medical History Cardiovascular History: Reports: Hypertension Gastrointestinal History: Reports: GERD Other Musculoskeletal History: DJD Neurological History: Reports: Seizure Psychiatric History: Reports: Addiction, Anxiety, Depression Dermatologic History: Reports: Cellulitis - Past Surgical History HEENT Surgical History: Reports: Adenoidectomy, Tonsillectomy Female Surgical History: Reports: Hysterectomy, Other (See Below) Musculoskeletal Surgical History: Reports: Other (See Below) Oncologic Surgical History: Reports: Biopsy of Breast Social & Family History - Family History Family Medical History: Noncontributory - Caffeine Use Caffeine Use: Reports: Soda, Tea ED ROS GENERAL - Review of Systems Review Of Systems: See Below (Information from patient is not reliable as assessment does not correlate with ROS per patient admission) ED EXAM, GENERAL - Physical Exam Exam: See Below Exam Limited By: Other (Patient initially uncooperative, but with discussion, she eventually agreed to assessment) Respiratory/Chest: No Respiratory Distress, Lungs Clear, Decreased Breath Sounds Cardiovascular: Regular Rate, Rhythm Peripheral Pulses: 2+: Radial (L), Radial (R) GI/Abdominal: Soft, Non-Tender, Abnormal Bowel Sounds (Hypoactive) Extremities: Pallor Neurological: Alert, Slow to Respond Skin Exam: Other (See images attached to this visit) EKG INTERPRETATION EKG Date: 01/17/19 Time: 14:18 Rhythm: NSR Rate (Beats/Min): 65 [place]: Normal P-Wave: Present QRS: Normal ST-T: Normal QT: Normal VA/PQ Interval: 0.16 Comparison: NA - No Prior EKG EKG Interpretation Comments: 1. Sinus Rhythm 2. Nonspecific T-wave abnormality Course - Vital Signs Last Recorded V/S: Last Vital Signs Temp 35.3 C 01/17/19 13:35 Pulse 71 01/17/19 13:35 Resp 16 01/17/19 13:35 BP 82/48 L 01/17/19 13:35 Pulse Ox 99 01/17/19 13:35 - Orders/Labs/Meds Orders: Active Orders 24 hr Category Date Time Status EKG 12 Lead [EKG Documentation Completion] [RC] STAT Care 01/17/19 14:03 Active CULTURE BLOOD [BC] Stat Lab 01/17/19 14:27 Results CULTURE BLOOD [BC] Stat Lab 01/17/19 14:36 Received Sodium Chloride 0.9% [Saline Flush] Med 01/17/19 14:00 Active 10 ml FLUSH ASDIRECTED PRN Blood Culture x2 Reflex Set [OM.PC] Stat Oth 01/17/19 13:59 Ordered Peripheral IV Insertion Adult [OM.PC] Routine Oth 01/17/19 14:00 Ordered Medication Orders Sodium Chloride (Saline Flush) 10 ml FLUSH ASDIRECTED PRN PRN Reason: Keep Vein Open Labs: Laboratory Tests 01/17/19 01/17/19 01/17/19 Range/Units 14:27 14:27 14:27 WBC 4.0 (4.0-10.0) x10^3/uL RBC 3.54 L (4.00-5.50) x10^6/uL Hgb 11.6 L D (12.0-16.0) g/dL Hct 32.3 L (33.0-47.0) % MCV 91.2 (78.0-93.0) fL MCH 32.8 H (26.0-32.0) pg MCHC 35.9 (32.0-36.0) g/dL RDW Coeff of Rupert 14.3 (10.0-15.0) % Plt Count 64 L D (130-400) x10^3/uL Neut % (Auto) 81.9 H (50.0-80.0) % Lymph % (Auto) 8.8 L (25.0-50.0) % [place] % (Auto) 8.5 (2.0-11.0) % Eos % (Auto) 0.8 (0.0-4.0) % Baso % (Auto) 0.0 L (0.2-1.2) % Sodium 130 L D (136-145) mmol/L Potassium 4.4 (3.5-5.1) mmol/L Chloride 89 L D (98-107) mmol/L Carbon Dioxide 14 L D (21-32) mmol/L Anion Gap 31.4 H (10-20) mmol/L BUN 207 H* D (7-18) mg/dL Creatinine 8.6 H* D (0.55-1.02) mg/dL Est Cr Clr Drug Dosing 5.68 mL/min Estimated GFR (MDRD) 5 Glucose 135 H (74-106) mg/dL Lactic Acid 2.0 (0.4-2.0) mmol/L Calcium 6.8 L* D (8.5-10.1) mg/dL Corrected Calcium 8.32 L D (8.5-10.1) mg/dL Phosphorus 9.9 H (2.6-4.7) mg/dL Magnesium 2.3 (1.8-2.4) mg/dL Total Bilirubin 0.4 (0.2-1.0) mg/dL AST 24 (15-37) U/L ALT 18 (14-59) U/L Alkaline Phosphatase 254 H (46-116) U/L Creatine Kinase 57 (26-192) U/L Troponin I Cancelled C-Reactive Protein 16.7 H (<=0.9) mg/dL Total Protein 5.9 L (6.4-8.2) g/dL Albumin 2.1 L (3.4-5.0) g/dL Globulin 3.8 Albumin/Globulin Ratio 0.55 Ethyl Alcohol < 3 (0-3) mg/dL Meds: Medications Generic Name Dose Route Start Last Admin Trade Name Freq PRN Reason Stop Dose Admin Sodium Chloride 10 ml 01/17/19 14:00 Saline Flush FLUSH ASDIRECTED PRN Keep Vein Open Discontinued Medications Generic Name Dose Route Start Last Admin Trade Name Freq PRN Reason Stop Dose Admin Ceftriaxone Sodium 1 gm 01/17/19 14:25 01/17/19 16:29 Rocephin IVPUSH 01/17/19 14:26 1 gm STAT ONE Administration Ceftriaxone Sodium Confirm 01/17/19 16:30 Rocephin Administered 01/17/19 16:31 Dose 1 gm .ROUTE .STK-MED ONE Sodium Chloride 1,000 mls @ 999 mls/hr 01/17/19 14:04 01/17/19 14:13 Normal Saline IV 01/17/19 15:04 999 mls/hr ONETIME ONE Administration Departure - Departure Time of Disposition: 16:35 Disposition: DC/Tfer to Acute Hospital 02 Condition: Poor Clinical Impression: Dehydration, Wound of skin, Malnutrition compromising bodily function Acute renal failure Qualifiers: Acute renal failure type: unspecified Qualified Code(s): N17.9 - Acute kidney failure, unspecified Hypotension Qualifiers: Hypotension type: unspecified hypotension type Qualified Code(s): I95.9 - Hypotension, unspecified - Discharge Information *PRESCRIPTION DRUG MONITORING PROGRAM REVIEWED*: Not Applicable *COPY OF PRESCRIPTION DRUG MONITORING REPORT IN PATIENT [place]: Not Applicable Forms: Interfacility Transfer [facility] ED Communication - ED Communication Date/Time Date: 01/17/19 Time Called: 16:16 - Discussed Case With (1) Discussed Case With (1): Admitting Provider (Dr. Ochoa, Hospitalist) - Conversation Summary Admitting Provider Agreed to Patient's Admission: Yes - Problem List Review Problem List Initiated/Reviewed/Updated: Yes - My Orders Last 24 Hours: My Active Orders 01/17/19 13:59 Blood Culture x2 Reflex Set [OM.PC] Stat 01/17/19 14:00 Sodium Chloride 0.9% [Saline Flush] 10 ml FLUSH ASDIRECTED PRN Peripheral IV Insertion Adult [OM.PC] Routine 01/17/19 14:03 EKG 12 Lead [EKG Documentation Completion] [RC] STAT 01/17/19 14:27 CULTURE BLOOD [BC] Stat 01/17/19 14:36 CULTURE BLOOD [BC] Stat - Assessment/Plan Last 24 Hours: My Active Orders 01/17/19 13:59 Blood Culture x2 Reflex Set [OM.PC] Stat 01/17/19 14:00 Sodium Chloride 0.9% [Saline Flush] 10 ml FLUSH ASDIRECTED PRN Peripheral IV Insertion Adult [OM.PC] Routine 01/17/19 14:03 EKG 12 Lead [EKG Documentation Completion] [RC] STAT 01/17/19 14:27 CULTURE BLOOD [BC] Stat 01/17/19 14:36 CULTURE BLOOD [BC] Stat Assessment:: Acute Renal Failure Decubitus wounds, multiple Anuric Hypotension Severe Dehydration Plan: Case discussed with Dr. Ochoa, Hospitalist. Patient accepted in transfer. Patient will be sent to [facility]. Patient will be sent via [facility] ground. Patient was made aware of plan of care.
[2019-01-17] MEDS ORDERED: cefTRIAXone 1 GM Vial IVPUSH ONE (14:25)
[2019-01-17 15:16] LABS: ANION GAP 31.4 mmol/L (10-20); CHLORIDE,CL 89 mmol/L (98-107); SODIUM,NA 130 mmol/L (136-145)
[2019-01-17] MEDS ORDERED: cefTRIAXone 1 GM Vial ONE (16:30)
[2019-01-17 16:46] VITALS: BP 136/74
== END 2019-01-17 18:35 | disposition short-term general hospital (02) ==
LOC: VM.ED 13:32
DX: N17.9 Acute kidney failure, unspecified (principal); E86.0 Dehydration; I95.9 Hypotension, unspecified; E46 Unspecified protein-calorie malnutrition; R34 Anuria and oliguria; L89.95 Pressure ulcer of unspecified site, unstageable
CPT/HCPCS: 36415; 80053; 82550; 83605; 83735; 84100; 84484; 85025; 86140; 87040; 93005; 96361; 96374; 99285; G0480; J0696; J7030